=== PATIENT | female | born 1955 | race Caucasian/White ===

== ENCOUNTER 2019-07-02 01:32 | Inpatient (IN) | payer MEDICAID ==
[~2019-07-02] VITALS: Ht 162.6 cm; Wt 67.7 kg
[~2019-07-02 01:32] MED LIST: ASPI-107 PO; ATOR10TA87 PO; BISA-155; BISA10SU60 RC; CYAN100097 IMVAC; DIPH25CA83 PO; DOCU-273; HYDR-3686 PO; LAMO100T PO; LAMO100T65 PO; LINA145C PO; LORA10TA61 PO; MEGA RED; MORP30TA PO; MSC100T PO; NITR0.4T51 SL; PANT-47 PO; QUET400T PO; RANI150T8 PO; SUMA50TA PO
[2019-07-02] MEDS ORDERED: diltiazem 5mg/ml 5ml inj. IV ONE ×2 (01:50→02:35)
[2019-07-02] MEDS ORDERED: adenosine 3mg/ml 2ml vial IV PRN (02:00)
[2019-07-02] MEDS ORDERED: adenosine 3mg/ml 2ml vial IV ONE (02:00)
--- NOTE | 2019-07-02 02:13 | NUR ---
valsalva manuvers attemped with no change to rate. piv place , 20 g rhand. adenosine 6 mg
[2019-07-02] MEDS ORDERED: aspirin 81mg tab.chew PO ONE (02:30)
[2019-07-02 02:33] LABS: BASOPHILS # (AUTO) 0.1 X10'3 (0-0.2); BASOPHILS % (AUTO) 0.8 % (0-1); EOSINOPHILS # (AUTO) 0.4 X10'3 (0-0.9); EOSINOPHILS % (AUTO) 3.8 % (0-6); HEMATOCRIT 37.7 % (35.0-45.0); HEMOGLOBIN 12.5 g/dl (12.0-16.0); LYMPHOCYTES # (AUTO) 4.7 X10'3 (1.1-4.8); LYMPHOCYTES % (AUTO) 50.1 % (21-51); MEAN CORPUSCULAR HEMOGLOBIN 27.7 PG (27.0-31.0); MEAN CORPUSCULAR HGB CONC 33.2 g/dL (33.0-36.5); MEAN CORPUSCULAR VOLUME 83.7 FL (78-98); MEAN PLATELET VOLUME 9.4 FL (7.4-10.4); MONOCYTES # (AUTO) 0.6 X10'3 (0-0.9); MONOCYTES % (AUTO) 6.7 % (2-12); NEUTROPHILS # (AUTO) 3.6 X10'3 (1.8-7.7); NEUTROPHILS % (AUTO) 38.6 % (42-75); PLATELET COUNT 287 X10'3 (140-440); RED BLOOD COUNT 4.51 X10'6 (4.20-5.60); RED CELL DISTRIBUTION WIDTH 14.7 % (11.5-14.5); WHITE BLOOD COUNT 9.4 X10'3 (4.5-11.0)
[2019-07-02 02:35] LABS: ALANINE AMINOTRANSFERASE 16 U/L (12-78); ALBUMIN/GLOBULIN RATIO 0.8 (1.1-1.5); ALKALINE PHOSPHATASE 102 IU/L (46-116); ANION GAP 8 (8-16); ASPARTATE AMINO TRANSFERASE 16 U/L (10-37); BILIRUBIN,TOTAL 0.2 MG/DL (0.1-1.0); BLOOD UREA NITROGEN 13 MG/DL (7-18); BUN/CREATININE RATIO 11.9 (6.6-38.0); CALCIUM 8.6 MG/DL (8.5-10.1); CHLORIDE 110 MMOL/L (99-107); CREATININE 1.09 MG/DL (0.40-0.90); GLUCOSE 154 MG/DL (70-104); POTASSIUM 3.5 MMOL/L (3.5-5.1); SODIUM 147 MMOL/L (135-145); TOTAL CARBON DIOXIDE 28.8 MMOL/L (24-32); TOTAL PROTEIN 6.6 G/DL (6.4-8.2); eGFR 51 ML/MIN
--- NOTE | 2019-07-02 02:49 | NUR ---
notified edmd pinky of pt bp drop to 93/53. verbal order received from 1 liter bolus of ns. order placed
[2019-07-02] MEDS ORDERED: normal saline 1000ml 1,000 ML IV ONE (02:50)
[2019-07-02 02:54] LABS: TROPONIN I < 0.04 NG/ML (0.0-0.05)
[2019-07-02] MEDS ORDERED: acetaminophen 325mg tablet PO PRN (04:55)
[2019-07-02] MEDS ORDERED: magnesium 4gm in 100ml NS 100 ML IV PRN (04:55)
[2019-07-02] MEDS ORDERED: magnesium 2GM in 50ml NS 50 ML IV PRN (04:55)
[2019-07-02] MEDS ORDERED: ondansetron/PF 4mg/2ml inj IV PRN (04:55)
[2019-07-02] MEDS ORDERED: potassium Cl 20 mEq SR tablet PO PRN ×2 (04:55)
[2019-07-02] MEDS ORDERED: potassium CL 10mEq/100ml bag 100 ML IV PRN ×2 (04:55)
[2019-07-02] MEDS ORDERED: mag hydrox/Alum hydrox/simeth 30ml oral suspension PO PRN (04:55)
[2019-07-02] MEDS ORDERED: magnesium Cl slow-release 64mg tablet PO PRN (04:55)
[2019-07-02] MEDS ORDERED: magnesium hydroxide 30ml (MOM) UD suspension PO PRN (04:55)
[2019-07-02] MEDS ORDERED: nitroGLYCERIN 0.4mg SUBLingual tab SL PRN ×3 (05:00→19:25)
[2019-07-02] MEDS ORDERED: clopidogrel 300mg tablet PO ONE (05:00)
[2019-07-02] MEDS: normal saline 1000ml 1,000 ML IV SCH ×3 (05:11→20:57)
--- NOTE | 2019-07-02 06:22 | NUR ---
PT RESTING IN BED. HR 89 SR.
--- NOTE | 2019-07-02 07:19 | NUR ---
Patient going to RM 311. I have received report from PUNEET Weiss and had the opportunity to ask questions and assume patient care. Per Isela, will page hospitalist regarding elevated 3hr troponin.
--- NOTE | 2019-07-02 07:28 | NUR ---
Patient arrived on unit.
[2019-07-02 07:30] VITALS: BP 117/82
--- NOTE | 2019-07-02 07:32 | NUR ---
hosp paged about trop 0.11
[2019-07-02] MEDS: K and/or MAG REPLACEMENT MC SCH ×2 (08:00→20:00)
[2019-07-02] MEDS: aspirin 81mg tab.chew PO SCH (08:00)
[2019-07-02] MEDS: metoprolol tartrate 12.5mg (1/2 tablet) PO SCH ×2 (09:13→20:53)
[2019-07-02] MEDS: clopidogrel 75mg tablet PO SCH (09:13)
[2019-07-02] MEDS: enoxaparin 40mg/0.4ml syringe SQ SCH (09:14)
--- NOTE | 2019-07-02 09:52 | NUR ---
Paged Dr. Mckenzie: "PAGER ID: [phone] MESSAGE: RM 311: 6hr trop 0.23, up from 0hr: 0.04, 3hr: 0.11. Pt c/o mild heartburn pain in neck, resolved after 5 minutes. Blessing SY [id number]"
[2019-07-02 11:00] VITALS: BP 103/76
[2019-07-02] MEDS ORDERED: CYAN10007 (12:40)
[2019-07-02] MEDS ORDERED: MORP60TA77 PO (12:40)
[2019-07-02] MEDS ORDERED: MSC30T PO (12:40)
[2019-07-02] MEDS ORDERED: DOCU-22 PO (12:40)
[2019-07-02] MEDS ORDERED: MORP-92 (12:40)
[2019-07-02] MEDS ORDERED: HYDR50TA65 PO (12:40)
[2019-07-02] MEDS ORDERED: MORP15TA PO ×2 (12:40→15:17)
[2019-07-02] MEDS ORDERED: QUET400T12 PO (12:40)
--- NOTE | 2019-07-02 12:46 | NUR ---
Paged Dr. Mckenzie regarding Med Rec: PAGER ID: [phone] MESSAGE: RM 311 Home medications ready to be reconciled. Thanks Blessing ACCE [id number]
[2019-07-02] MEDS ORDERED: QUET400T PO (13:04)
--- NOTE | 2019-07-02 14:38 | NUR ---
Paged irrigation technician: "RM 311 12hr ACS EKG ordered for 1429. Please complete REGGIE if available. Thanks!!"
[2019-07-02 15:00] VITALS: BP 114/77
[2019-07-02] MEDS ORDERED: nicotine 7mg patch - 24hr TD ONE (16:05)
[2019-07-02] MEDS ORDERED: morphine 2 MG/ML inj. syringe IV PRN (16:05)
[2019-07-02] MEDS: oxyCODONE/APAP 5-325mg tablet PO PRN (16:33)
[2019-07-02] MEDS ORDERED: pneumococcal 23-VAL P-sac vacc 25 mcg/0.5ml vial IMVAC ONE (17:05)
[2019-07-02 18:00] VITALS: BP 121/81
--- NOTE | 2019-07-02 18:05 | NUR ---
Patient in room MED 311. I have received report from Blessing TEIXEIRA and had the opportunity to ask questions and assume patient care.
--- NOTE | 2019-07-02 18:28 | NUR ---
Problems reprioritized. Patient report given, questions answered & plan of care reviewed with PUNEET Leach.
[2019-07-02] MEDS ORDERED: hydrOXYzine 25 MG tablet PO PRN (18:40)
[2019-07-02] MEDS ORDERED: regadenoson 0.4mg/5ml syringe IV ONE (19:25)
[2019-07-02] MEDS ORDERED: metoprolol tartrate 1mg/ml inj IV PRN (19:25)
[2019-07-02] MEDS ORDERED: aminophylline 250mg/10ml inj. IV PRN (19:25)
[2019-07-02] MEDS: docusate sod 100mg capsule PO SCH (20:54)
[2019-07-02] MEDS: quetiapine 100mg tablet PO SCH (21:03)
[2019-07-02 22:00] VITALS: BP 124/79
[2019-07-03 02:00] VITALS: BP 116/83
[2019-07-03 05:15] LABS: BASOPHILS % (AUTO) 0.9 % (0-1); EOSINOPHILS # (AUTO) 0.3 X10'3 (0-0.9); HEMATOCRIT 32.2 % (35.0-45.0); HEMOGLOBIN 10.7 g/dl (12.0-16.0); LYMPHOCYTES # (AUTO) 2.7 X10'3 (1.1-4.8); LYMPHOCYTES % (AUTO) 50.6 % (21-51); MEAN CORPUSCULAR HEMOGLOBIN 27.5 PG (27.0-31.0); MEAN CORPUSCULAR HGB CONC 33.2 g/dL (33.0-36.5); MEAN PLATELET VOLUME 9.4 FL (7.4-10.4); MONOCYTES # (AUTO) 0.4 X10'3 (0-0.9); MONOCYTES % (AUTO) 7.8 % (2-12); NEUTROPHILS # (AUTO) 1.9 X10'3 (1.8-7.7); NEUTROPHILS % (AUTO) 35.7 % (42-75); PLATELET COUNT 199 X10'3 (140-440); RED BLOOD COUNT 3.88 X10'6 (4.20-5.60); RED CELL DISTRIBUTION WIDTH 14.9 % (11.5-14.5); WHITE BLOOD COUNT 5.3 X10'3 (4.5-11.0)
[2019-07-03 05:28] LABS: ALANINE AMINOTRANSFERASE 13 U/L (12-78); ALBUMIN 2.5 G/DL (3.4-5.0); ALBUMIN/GLOBULIN RATIO 0.8 (1.1-1.5); ALKALINE PHOSPHATASE 82 IU/L (46-116); ANION GAP 6 (8-16); ASPARTATE AMINO TRANSFERASE 15 U/L (10-37); BILIRUBIN,TOTAL 0.1 MG/DL (0.1-1.0); BLOOD UREA NITROGEN 11 MG/DL (7-18); BUN/CREATININE RATIO 13.8 (6.6-38.0); CALCIUM 8.2 MG/DL (8.5-10.1); CHLORIDE 115 MMOL/L (99-107); GLUCOSE 98 MG/DL (70-104); MAGNESIUM 1.9 MG/DL (1.5-2.4); PHOSPHORUS 3.4 MG/DL (2.3-4.5); SODIUM 147 MMOL/L (135-145); TOTAL CARBON DIOXIDE 26.2 MMOL/L (24-32); TOTAL PROTEIN 5.6 G/DL (6.4-8.2); eGFR 72 ML/MIN
[2019-07-03 06:00] VITALS: BP 131/81
--- NOTE | 2019-07-03 06:20 | NUR ---
Problems reprioritized. Patient report given, questions answered & plan of care reviewed with LUIS TEIXEIRA.
--- NOTE | 2019-07-03 06:30 | NUR ---
Patient in room MED 311. I have received report from PUNEET Leach and had the opportunity to ask questions and assume patient care.
[2019-07-03] MEDS: docusate sod 100mg capsule PO SCH ×2 (07:26→20:03)
[2019-07-03] MEDS: quetiapine 100mg tablet PO SCH ×2 (07:26→20:02)
[2019-07-03] MEDS: aspirin 81mg tab.chew PO SCH (07:27)
[2019-07-03] MEDS: clopidogrel 75mg tablet PO SCH (07:27)
[2019-07-03] MEDS: enoxaparin 40mg/0.4ml syringe SQ SCH (07:28)
[2019-07-03] MEDS: oxyCODONE/APAP 5-325mg tablet PO PRN ×3 (07:31→22:18)
[2019-07-03] MEDS ORDERED: ASPIRIN 81 MG PO SCH (08:00)
[2019-07-03] MEDS ORDERED: loratadine 10mg tablet PO PRN (08:00)
[2019-07-03] MEDS: K and/or MAG REPLACEMENT MC SCH ×2 (08:00→20:00)
[2019-07-03] MEDS: metoprolol tartrate 12.5mg (1/2 tablet) PO SCH ×2 (08:00→20:09)
[2019-07-03] MEDS ORDERED: nicotine 7mg patch - 24hr TD SCH ×2 (08:00→16:30)
[2019-07-03 10:00] VITALS: BP 108/81
[2019-07-03 14:00] VITALS: BP 104/51
[2019-07-03 18:21] VITALS: BP 112/79
--- NOTE | 2019-07-03 18:25 | NUR ---
Patient in room MED 311. I have received report from Astrid portillo. and had the opportunity to ask questions and assume patient care., pt up abulating in vo. no distress noted.
--- NOTE | 2019-07-03 18:30 | NUR ---
Patient in room MED 311. I have received report from Raven TEIXEIAR and had the opportunity to ask questions and assume patient care.
--- NOTE | 2019-07-03 18:50 | NUR ---
Problems reprioritized. Patient report given, questions answered & plan of care reviewed with PUNEET Ulloa.
[2019-07-03 22:30] VITALS: BP 108/71
[2019-07-04 01:45] VITALS: BP 128/81
[2019-07-04 01:47] LABS: BASOPHILS # (AUTO) 0.1 X10'3 (0-0.2); BASOPHILS % (AUTO) 1.2 % (0-1); EOSINOPHILS # (AUTO) 0.2 X10'3 (0-0.9); EOSINOPHILS % (AUTO) 3.9 % (0-6); HEMATOCRIT 35.1 % (35.0-45.0); HEMOGLOBIN 11.8 g/dl (12.0-16.0); LYMPHOCYTES # (AUTO) 2.6 X10'3 (1.1-4.8); LYMPHOCYTES % (AUTO) 42.6 % (21-51); MEAN CORPUSCULAR HEMOGLOBIN 27.8 PG (27.0-31.0); MEAN CORPUSCULAR HGB CONC 33.6 g/dL (33.0-36.5); MEAN CORPUSCULAR VOLUME 82.9 FL (78-98); MONOCYTES # (AUTO) 0.5 X10'3 (0-0.9); MONOCYTES % (AUTO) 7.5 % (2-12); NEUTROPHILS # (AUTO) 2.8 X10'3 (1.8-7.7); NEUTROPHILS % (AUTO) 44.8 % (42-75); PLATELET COUNT 232 X10'3 (140-440); RED BLOOD COUNT 4.23 X10'6 (4.20-5.60); RED CELL DISTRIBUTION WIDTH 14.6 % (11.5-14.5); WHITE BLOOD COUNT 6.2 X10'3 (4.5-11.0)
[2019-07-04 02:01] LABS: ALANINE AMINOTRANSFERASE 14 U/L (12-78); ALBUMIN/GLOBULIN RATIO 0.9 (1.1-1.5); ALKALINE PHOSPHATASE 88 IU/L (46-116); ANION GAP 5 (8-16); ASPARTATE AMINO TRANSFERASE 13 U/L (10-37); BILIRUBIN,TOTAL 0.3 MG/DL (0.1-1.0); BLOOD UREA NITROGEN 11 MG/DL (7-18); BUN/CREATININE RATIO 12.9 (6.6-38.0); CALCIUM 8.7 MG/DL (8.5-10.1); CHLORIDE 112 MMOL/L (99-107); CREATININE 0.85 MG/DL (0.40-0.90); GLUCOSE 90 MG/DL (70-104); MAGNESIUM 2.1 MG/DL (1.5-2.4); PHOSPHORUS 4.1 MG/DL (2.3-4.5); POTASSIUM 3.6 MMOL/L (3.5-5.1); SODIUM 145 MMOL/L (135-145); TOTAL CARBON DIOXIDE 27.7 MMOL/L (24-32); TOTAL PROTEIN 6.5 G/DL (6.4-8.2); eGFR 68 ML/MIN
[2019-07-04 06:00] VITALS: BP 135/86
--- NOTE | 2019-07-04 06:20 | NUR ---
Problems reprioritized. Patient report given, questions answered & plan of care reviewed with Raven TEIXEIRA, bedside report completed.
--- NOTE | 2019-07-04 06:35 | NUR ---
Patient in room MED 311. I have received report from PUNEET Ulloa and had the opportunity to ask questions and assume patient care.
[2019-07-04] MEDS: K and/or MAG REPLACEMENT MC SCH (08:00)
[2019-07-04] MEDS: docusate sod 100mg capsule PO SCH (08:11)
[2019-07-04] MEDS: quetiapine 100mg tablet PO SCH (08:11)
[2019-07-04] MEDS: clopidogrel 75mg tablet PO SCH (08:12)
[2019-07-04] MEDS: metoprolol tartrate 12.5mg (1/2 tablet) PO SCH (08:12)
[2019-07-04] MEDS: aspirin 81mg tab.chew PO SCH (08:12)
[2019-07-04] MEDS: oxyCODONE/APAP 5-325mg tablet PO PRN (08:12)
[2019-07-04] MEDS: enoxaparin 40mg/0.4ml syringe SQ SCH (08:13)
[2019-07-04 10:00] VITALS: BP 122/75
[2019-07-04] MEDS ORDERED: NICO-630 TD (10:19)
[2019-07-04] MEDS ORDERED: METO-539 PO (10:19)
--- NOTE | 2019-07-04 11:21 | NUR ---
PAGER ID: [phone] MESSAGE: [phone]. ptLissette Stoner. pt. was on Plavix during hospital stay and was asking about whether she needs it on discharge. please advise. PUNEET Resendiz [id number] Addendum: 07/04/19 at 1122 by Astrid Lundberg RN said aspirin was the only one needed on discharge.
--- NOTE | 2019-07-04 11:30 | NUR ---
pt. discharged from facility at 1123. pt. walked down to lobby with staff to wait for pt. daughter to pick her up. pt. signed and understood all paperwork. pt. meds were confirmed to be e-faxed to [facility] on [address] pt. 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 De La Rosa on 07/19/19 at 1400. RN did discuss with pt. how if the appointment can be rescheduled for earlier it would be better. pt. left with all belongings.
== END 2019-07-04 11:20 | disposition home or self-care (01) | DRG 243 ==
LOC: ER 01:32 → ED HOLD 04:53 → MED 3N 07:24 → OBSVTOIN 14:00
PROVIDERS: ADMIT Family Medicine; ATTEND Family Medicine
PROC: 3E0234Z Introduction of Serum, Toxoid and Vaccine into Muscle, Percutaneous Approach (ICD-10-PCS; principal; 2019-07-02)
PROC: 4A02XM4 Measurement of Cardiac Total Activity, External Approach (ICD-10-PCS; 2019-07-03)
DX: K21.9 Gastro-esophageal reflux disease without esophagitis (principal); I21.A1 Myocardial infarction type 2; I11.0 Hypertensive heart disease with heart failure; I50.9 Heart failure, unspecified; I47.1 Supraventricular tachycardia; K50.90 Crohn's disease, unspecified, without complications; E78.5 Hyperlipidemia, unspecified; F17.210 Nicotine dependence, cigarettes, uncomplicated; F31.9 Bipolar disorder, unspecified; I25.10 Atherosclerotic heart disease of native coronary artery without angina pectoris; G89.29 Other chronic pain; I25.2 Old myocardial infarction; Z79.899 Other long term (current) drug therapy; Z90.49 Acquired absence of other specified parts of digestive tract; Z23 Encounter for immunization; Z79.82 Long term (current) use of aspirin
CPT/HCPCS: 36415; 71045; 78452; 80053; 83735; 83880; 84100; 84484; 85025; 87081; 90732; 93005; 93017; 93306; 96361; 96366; 96372; 96375; 99285; A9500; G0378; J0153; J1650; J2785; J3490; J7030

== ENCOUNTER 2020-10-14 15:23 | Outpatient (CLI) | payer MEDICARE, MEDICAID ==
[~2020-10-14 15:23] MED LIST changes: -ATOR10TA87 PO; -BISA-155; -BISA10SU60 RC; -CYAN100097 IMVAC; -DIPH25CA83 PO; +DOCU-22 PO; -DOCU-273; -HYDR-3686 PO; +HYDR50TA65 PO; -LAMO100T PO; -LAMO100T65 PO; -LINA145C PO; -MEGA RED; -MORP30TA PO; -MSC100T PO; +NICO-630 TD; -PANT-47 PO; +QUET400T12 PO; -RANI150T8 PO; -SUMA50TA PO
== END 2020-10-14 23:59 | disposition home or self-care (01) ==
LOC: RAD 15:23
PROVIDERS: ATTEND Nurse Practitioner Family
DX: R13.10 Dysphagia, unspecified (principal)
CPT/HCPCS: 74230